=== PATIENT | female | born 1980 | race Caucasian/White ===

== ENCOUNTER 2019-08-22 09:12 | Outpatient (CLI) | payer BC, OTHER ==
[~2019-08-22] VITALS: Ht 160 cm; Wt 66.7 kg
[2019-08-22] VITALS (10 sets, daily range): BP systolic 98–115; BP diastolic 62–77; PULSE 58–80; TEMP 98
--- NOTE | 2019-08-22 10:05 | NUR ---
PT AMBULTORY TO CT. PT POSITIONED ON TABLE. MONITORING EQUIPMENT PLACED. IMAGES TAKEN AND SENT
--- NOTE | 2019-08-22 10:30 | NUR ---
MONITORING EQUIPMENT REMOVED. PT ASSISTED TO CART AND TAKEN TO [facility]. REPORT TO RYANN VICK. CXR AT 1130.
== END 2019-08-22 12:03 | disposition home or self-care (01) ==
LOC: COL.RAD 09:12
DX: J84.10 Pulmonary fibrosis, unspecified (principal); Z87.891 Personal history of nicotine dependence
CPT/HCPCS: 32106